=== PATIENT | male | born 1950 | race Caucasian/White ===

== ENCOUNTER 2017-12-14 16:29 | Emergency (ER) | payer MEDICARE, OTHER ==
[~2017-12-14] VITALS: Ht 177.8 cm; Wt 104.3 kg
[2017-12-14 16:43] VITALS: BP 159/102
[2017-12-14] MEDS ORDERED: HYDR-971 PO (17:29)
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
[2017-12-14] MEDS ORDERED: ONDANSETRON ODT 4 MG TAB.RAPDIS PO ONE (17:30)
[2017-12-14] MEDS ORDERED: HYDROcodone/APAP 7.5/325MG 1 TAB TABLET PO ONE (17:30)
== END 2017-12-14 17:47 | disposition home or self-care (01) ==
LOC: ER 16:29
DX: S46.212A Strain of muscle, fascia and tendon of other parts of biceps, left arm, initial encounter (principal); I10 Essential (primary) hypertension; X50.9XXA Other and unspecified overexertion or strenuous movements or postures, initial encounter; Y93.89 Activity, other specified; Y99.8 Other external cause status; Y92.89 Other specified places as the place of occurrence of the external cause
CPT/HCPCS: 29105; 99283; Q0162

== ENCOUNTER 2019-06-16 20:19 | Emergency (ER) | payer OTHER, MEDICARE ==
[~2019-06-16] VITALS: Ht 177.8 cm; Wt 98.4 kg
[~2019-06-16 20:19] MED LIST: HYDR-3165 PO
--- NOTE | 2019-06-16 20:25 | ED.ADGEN ---
Past History Past Medical History: Arthritis, Hypertension, Other Past Surgical History: Lumbar Laminectomy, Other Alcohol Use: None Drug Use: None Adult General Chief Complaint Chief Complaint ".. I was up on a ladder trying to remove a window.. and slipped and fell .. landing on this Rt. hip... " HPI HPI Patient is a 68 year old male who presents with above hx and complaints of hip injury after a fall from stepladder approximately 3-4 steps. Patient can bear weight but complains of pain in right hip. Does have some findings of contusion on right hip. Patient has large midline incision from previous lumbar fixation. Distal neurovascular appears to be intact. Patient can do straight leg lift. Is able bear weight with some pain in right hip. Patient denies other injury. No recent travel. No specific ill contacts. Patient follows with Dr. Foreman Review of Systems Review of Systems Constitutional: Denies fever or chills [] Eyes: Denies change in visual acuity, redness, or eye pain [] HENT: Denies nasal congestion or sore throat [] Respiratory: Denies cough or shortness of breath [] Cardiovascular: No additional information not addressed in HPI [] GI: Denies abdominal pain, nausea, vomiting, bloody stools or diarrhea [] : Denies dysuria or hematuria [] Musculoskeletal: Denies back pain or joint pain []Except. complains of Rt. hip pain. Integument: Denies rash or skin lesions [] Neurologic: Denies headache, focal weakness or sensory changes [] Endocrine: Denies polyuria or polydipsia [] All other systems were reviewed and found to be within normal limits, except as documented in this note. Family History Family History Noncontributory Current Medications Current Medications Current Medications Medications (Trade) Dose Ordered Sig/Onur Start Time Stop Time Status Last Admin Dose Admin Ketorolac Tromethamine (Toradol 15mg Vial) 15 mg 1X ONCE 06/16/19 20:45 06/16/19 20:46 DC 06/16/19 20:54 15 MG Lactated Ringer's 1,000 ml @ 1,000 mls/hr Q1H 06/16/19 20:38 06/16/19 21:37 DC 06/16/19 20:54 1,000 MLS/HR Morphine Sulfate (Morphine 10mg Syringe) 10 mg 1X ONCE 06/16/19 20:45 06/16/19 20:46 DC 06/16/19 20:54 10 MG Orphenadrine Citrate (Norflex) 60 mg 1X ONCE 06/16/19 20:45 06/16/19 20:46 DC 06/16/19 20:54 60 MG Allergies Allergies Allergies Coded Allergies Type Severity Reaction Last Updated Verified No Known Drug Allergies 12/14/17 No Physical Exam Physical Exam Constitutional: Moderately acute distress, non-toxic appearance. [] HENT: Normocephalic, atraumatic, bilateral external ears normal, oropharynx moist, no oral exudates, nose normal. [] Eyes: PERRLA, EOMI, conjunctiva normal, no discharge. [] Neck: Normal range of motion, no tenderness, supple, no stridor. [] Cardiovascular: Bradycardia Heart rate regular rhythm, no murmur [] Lungs & Thorax: Bilateral breath sounds equal apex auscultation [] Abdomen: Bowel sounds normal, soft, no tenderness, no masses, no pulsatile masses. [] Multiple surgery scars Skin: Warm, dry, no erythema, no rash. [] Back: No tenderness, no CVA tenderness. [] Old surgery scars Extremities: No tenderness, no cyanosis, no clubbing, ROM intact, no edema. []Except findings in right hip Neurologic: Alert and oriented X 3, normal motor function, normal sensory function, no focal deficits noted. [] Psychologic: Affect anxious, judgement normal, mood normal. [] Current Patient Data Vital Signs Vital Signs Date Time Temp Pulse Resp B/P (MAP) Pulse Ox O2 Delivery O2 Flow Rate FiO2 06/16/19 20:54 16 98 Room Air 06/16/19 20:36 98.1 70 Lab Results Laboratory Tests Test 06/16/19 20:50 White Blood Count 8.1 x10^3/uL (4.0-11.0) Red Blood Count 5.22 x10^6/uL (4.30-5.70) Hemoglobin 15.4 g/dL (13.0-17.5) Hematocrit 45.6 % (39.0-53.0) Mean Corpuscular Volume 88 fL (79-100) Mean Corpuscular Hemoglobin 30 pg (25-35) Mean Corpuscular Hemoglobin Concent 34 g/dL (31-37) Red Cell Distribution Width 13.7 % (11.5-14.5) Platelet Count 259 x10^3/uL (140-400) Neutrophils (%) (Auto) 61 % (31-73) Lymphocytes (%) (Auto) 28 % (24-48) Monocytes (%) (Auto) 9 % (0-9) Eosinophils (%) (Auto) 2 % (0-3) Basophils (%) (Auto) 0 % (0-3) Neutrophils # (Auto) 4.9 x10^3uL (1.8-7.7) Lymphocytes # (Auto) 2.3 x10^3/uL (1.0-4.8) Monocytes # (Auto) 0.7 x10^3/uL (0.0-1.1) Eosinophils # (Auto) 0.1 x10^3/uL (0.0-0.7) Basophils # (Auto) 0.0 x10^3/uL (0.0-0.2) Prothrombin Time 10.4 SEC (9.4-11.4) Prothrombin Time INR 1.0 (0.9-1.1) Activated Partial Thromboplast Time 23 SEC (23-33) Sodium Level 141 mmol/L (136-145) Potassium Level 4.5 mmol/L (3.5-5.1) Chloride Level 106 mmol/L (98-107) Carbon Dioxide Level 26 mmol/L (21-32) Anion Gap 9 (6-14) Blood Urea Nitrogen 18 mg/dL (8-26) Creatinine 1.0 mg/dL (0.7-1.3) Estimated GFR (Cockcroft-Gault) 74.1 Glucose Level 105 mg/dL (70-99) H Calcium Level 9.0 mg/dL (8.5-10.1) Magnesium Level 2.2 mg/dL (1.8-2.4) Total Bilirubin 0.5 mg/dL (0.2-1.0) Direct Bilirubin 0.1 mg/dL (0.0-0.2) Aspartate Amino Transferase (AST) 24 U/L (15-37) Alanine Aminotransferase (ALT) 39 U/L (16-63) Alkaline Phosphatase 67 U/L (46-116) IL-Quz-G-Type Natriuretic Peptide 74 pg/mL (0-124) Total Protein 7.5 g/dL (6.4-8.2) Albumin 4.1 g/dL (3.4-5.0) Lipase 544 U/L (73-393) H EKG EKG My interpretation EKG shows a sinus rhythm at 60 beats per minute. Right bundle branch block. No findings acute STEMI of contralateral changes.[] Radiology/Procedures Radiology/Procedures [[address] [address] IMAGING REPORT Signed PATIENT: LANA CARTAGENA ACCOUNT: [id number] : 1950 LOCATION: ER AGE: 68 SEX: M EXAM STATUS: REG ER ORD. PHYSICIAN: BRYON BRADY MD REASON: Fall off ladder today PROCEDURE: PORTABLE CHEST 1V EXAM: CHEST 1 VIEW. HISTORY: Fall, trauma. COMPARISON: None. FINDINGS: A frontal view of the chest is obtained. There are no confluent infiltrates. There is no pneumothorax or pleural effusion. The heart is not enlarged. The aorta is tortuous. IMPRESSION: 1. No confluent infiltrates. Electronically signed by: Joe Salinas MD (06/16/2019 10:44 PM) [facility] DICTATED AND SIGNED BY: ASHLEY SALINAS MD DATE: 06/16/192243 CC: LYNETTE FOREMAN DO; BRYON BRADY MD ~ ][address] [address] IMAGING REPORT Signed PATIENT: LANA CARTAGENA ACCOUNT: [id number] : 1950 LOCATION: ER AGE: 68 SEX: M EXAM STATUS: REG ER ORD. PHYSICIAN: BRYON BRADY MD REASON: Fall off ladder today PROCEDURE: LUMBAR SPINE 2-3V EXAM: 1. Lumbar spine 3 views. 2. Pelvis one view. 3. Right hip 2 views. HISTORY: Fall from ladder. COMPARISON: None. FINDINGS: There is a minimal lumbar dextrocurvature. Instrumented posterior fusion changes are noted from L4 through S1 with bilateral pedicle screws fixed by vertical rods. No fractures are identified. Degenerative disc disease is mild from T12 through L2, and moderate from L2 through S1. No pelvic fractures are identified. The joint spaces of both hips are maintained. There is mildly decreased femoral head/neck offset with a moderate osseous bump along the anterior aspect of the right femoral neck. Femoral head/neck offset is mildly decreased superolaterally on the left. IMPRESSION: 1. No fracture. 2. L4-S1 instrumented posterior fusion. 3. Mild to moderate diffuse lumbar degenerative disc disease. 4. Correlate for femoroacetabular impingement anteriorly on the right. Electronically signed by: Joe Salinas MD (06/16/2019 10:43 PM) [facility] DICTATED AND SIGNED BY: ASHLEY SALINAS MD DATE: 06/16/192242 CC: LYNETTE FOREMAN DO; BRYON BRADY MD ~ [address] [place] [address] IMAGING REPORT Signed PATIENT: LANA CARTAGENA ACCOUNT: [id number] : 1950 LOCATION: ER AGE: 68 SEX: M EXAM STATUS: REG ER ORD. PHYSICIAN: BRYON BRADY MD REASON: Fall off ladder today PROCEDURE: PELVIS EXAM: 1. Lumbar spine 3 views. 2. Pelvis one view. 3. Right hip 2 views. HISTORY: Fall from ladder. COMPARISON: None. FINDINGS: There is a minimal lumbar dextrocurvature. Instrumented posterior fusion changes are noted from L4 through S1 with bilateral pedicle screws fixed by vertical rods. No fractures are identified. Degenerative disc disease is mild from T12 through L2, and moderate from L2 through S1. No pelvic fractures are identified. The joint spaces of both hips are maintained. There is mildly decreased femoral head/neck offset with a moderate osseous bump along the anterior aspect of the right femoral neck. Femoral head/neck offset is mildly decreased superolaterally on the left. IMPRESSION: 1. No fracture. 2. L4-S1 instrumented posterior fusion. 3. Mild to moderate diffuse lumbar degenerative disc disease. 4. Correlate for femoroacetabular impingement anteriorly on the right. Electronically signed by: Joe Salinas MD (06/16/2019 10:43 PM) [facility] DICTATED AND SIGNED BY: ASHLEY SALINAS MD DATE: 06/16/19 4508 CC: LYNETTE FOREMAN DO; BRYON BRADY MD ~ Course & Med Decision Making Course & Med Decision Making Pertinent Labs and Imaging studies reviewed. (See chart for details) Patient to apply ice packs as needed. Patient follow-up primary care. Patient return of any concerns. Patient review ED record with primary care. Return turn if any concerns. For marked pain may have Vicoprofen up 4 times a day. [] Final Impression Final Impression 1. Fall 2. Right hip contusion 3. Mild elevation in lipase[] Dragon Disclaimer Dragon Disclaimer This electronic medical record was generated, in whole or in part, using a voice recognition dictation system. Dragon Disclaimer This chart was dictated in whole or in part using Voice Recognition software in a busy, high-work load, and often noisy Emergency Department environment. It may contain unintended and wholly unrecognized errors or omissions. BRYON BRADY MD Jun 16, 2019 20:25
[2019-06-16] MEDS ORDERED: IV RINGERS SOLUTION,LACTATED 1,000 ML IV SCH (20:38)
[2019-06-16] MEDS ORDERED: KETOROLAC 15 MG/ML VIAL. IV ONE (20:45)
[2019-06-16] MEDS ORDERED: ORPHENADRINE CITRATE 60 MG/2 ML VIAL. IV ONE (20:45)
[2019-06-16] MEDS ORDERED: MORPHINE SULFATE 10 MG/ML SYRINGE. SQ ONE (20:45)
[2019-06-16 21:22] LABS: BASO % 0 % (0-3); EOS # 0.1 x10^3/uL (0.0-0.7); EOS % 2 % (0-3); HEMATOCRIT 45.6 % (39.0-53.0); HEMOGLOBIN 15.4 g/dL (13.0-17.5); LYMPH # 2.3 x10^3/uL (1.0-4.8); LYMPH % 28 % (24-48); MEAN CORPUSCULAR HEMOGLOBIN 30 pg (25-35); MEAN CORPUSCULAR HGB CONC 34 g/dL (31-37); MEAN CORPUSCULAR VOLUME 88 fL (79-100); MONO # 0.7 x10^3/uL (0.0-1.1); MONO % 9 % (0-9); NEUT # 4.9 x10^3uL (1.8-7.7); NEUT % 61 % (31-73); PLATELET COUNT 259 x10^3/uL (140-400); RED BLOOD COUNT 5.22 x10^6/uL (4.30-5.70); RED CELL DISTRIBUTION WIDTH 13.7 % (11.5-14.5); WHITE BLOOD COUNT 8.1 x10^3/uL (4.0-11.0)
[2019-06-16 21:48] LABS: ALBUMIN 4.1 g/dL (3.4-5.0); DIRECT BILIRUBIN 0.1 mg/dL (0.0-0.2); GFR 74.1; MAGNESIUM 2.2 mg/dL (1.8-2.4); POTASSIUM 4.5 mmol/L (3.5-5.1); TOTAL BILIRUBIN 0.5 mg/dL (0.2-1.0); TOTAL PROTEIN 7.5 g/dL (6.4-8.2)
[2019-06-16] MEDS ORDERED: HYDR-1179 PO (22:24)
--- NOTE | 2019-06-16 22:46 | RAD ---
EXAM: 1. Lumbar spine 3 views. 2. Pelvis one view. 3. Right hip 2 views. HISTORY: Fall from ladder. COMPARISON: None. FINDINGS: There is a minimal lumbar dextrocurvature. Instrumented posterior fusion changes are noted from L4 through S1 with bilateral pedicle screws fixed by vertical rods. No fractures are identified. Degenerative disc disease is mild from T12 through L2, and moderate from L2 through S1. No pelvic fractures are identified. The joint spaces of both hips are maintained. There is mildly decreased femoral head/neck offset with a moderate osseous bump along the anterior aspect of the right femoral neck. Femoral head/neck offset is mildly decreased superolaterally on the left. IMPRESSION: 1. No fracture. 2. L4-S1 instrumented posterior fusion. 3. Mild to moderate diffuse lumbar degenerative disc disease. 4. Correlate for femoroacetabular impingement anteriorly on the right. Electronically signed by: Joe Salinas MD (06/16/2019 10:43 PM) [facility]
--- NOTE | 2019-06-16 22:47 | RAD ---
EXAM: CHEST 1 VIEW. HISTORY: Fall, trauma. COMPARISON: None. FINDINGS: A frontal view of the chest is obtained. There are no confluent infiltrates. There is no pneumothorax or pleural effusion. The heart is not enlarged. The aorta is tortuous. IMPRESSION: 1. No confluent infiltrates. Electronically signed by: Joe Salinas MD (06/16/2019 10:44 PM) [facility]
[2019-06-16 23:30] VITALS: BP 119/60
--- NOTE | 2019-06-18 01:52 | EKG ---
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
== END 2019-06-16 23:30 | disposition home or self-care (01) ==
LOC: ER 20:19
DX: S70.01XA Contusion of right hip, initial encounter (principal); R74.8 Abnormal levels of other serum enzymes; M51.36 Other intervertebral disc degeneration, lumbar region; M19.90 Unspecified osteoarthritis, unspecified site; I10 Essential (primary) hypertension; W11.XXXA Fall on and from ladder, initial encounter; Y93.89 Activity, other specified; Y92.89 Other specified places as the place of occurrence of the external cause; Y99.8 Other external cause status
CPT/HCPCS: 36415; 71045; 72100; 72170; 73502; 80048; 80076; 83690; 83735; 83880; 84443; 85025; 85610; 85730; 93005; 96372; 96374; 96375; 99285; J1885; J2270; J2360; J7120

== ENCOUNTER → 2021-01-04 | Outpatient (CLI) | payer OTHER ==
[~2021-01-04] MED LIST changes: +HYDR-1179 PO
--- NOTE | 2021-01-04 16:24 | RAD ---
XR LUMBAR SPINE 2-3V History: Reason: LOW BACK PAIN / Spl. Instructions: / History: Comparison: 06/16/2019 Technique: AP lateral and spot views of the lumbar spine Findings: There is a redemonstrated L4-S1 posterior spinal fixation. No evidence of screw loosening or componen t fracture. 5 nonrib-bearing lumbar vertebral bodies are in normal alignment. No fracture or dislocation. Promine nt multilevel marginal osteophyte formation. Mild disc space narrowing L1-L2. Moderate disc space morgan rowing L2-L3, L3-L4. No significant interval change from comparison. Impression: 1. L4-S1 posterior spinal fixation without evidence of complication. 2. Moderate adjacent segment degenerative disc disease. Electronically signed by: Orestes Aviles MD (01/04/2021 4:22 PM) [facility]
== END ==
LOC: DXRAD 10:08
PROVIDERS: ATTEND Family Medicine
DX: M51.36 Other intervertebral disc degeneration, lumbar region (principal); M48.061 Spinal stenosis, lumbar region without neurogenic claudication; M25.78 Osteophyte, vertebrae
CPT/HCPCS: 72100

== ENCOUNTER → 2021-06-05 | Outpatient (CLI) | payer MEDICARE, OTHER ==
--- NOTE | 2021-06-05 10:32 | RAD ---
CT ABDOMEN+PELVIS WO History: Reason: HEMATURIA - STONE STUDY / Spl. Instructions: / History: Technique: Noncontrast examination of the abdomen and pelvis. Coronal and sagittal reconstructions we re performed. Exposure: One or more of the following individualized dose reduction techniques were utilized for thi s examination: 1. Automated exposure control 2. Adjustment of the mA and/or kV according to patient size 3. Use of iterative reconstruction technique. Comparison: March 16, 2006 Findings: Lower chest: No consolidation or pleural effusion. Abdomen and pelvis: The liver, adrenal glands, pancreas and gallbladder are unremarkable. No biliary ductal dilatation. The spleen is enlarged measures 14 cm craniocaudal. No hydronephrosis. Punctate nonobstructing left inferior renal calculus. Bilateral perinephric strand ing extending along the retroperitoneum and course of the ureters into the pelvis. Colonic diverticulosis. Normal appendix. No evidence of bowel obstruction. No pathologic lymphadenopa thy. No ascites. Mild atheromatous plaque within the nonaneurysmal abdominal aorta. The prostate is enlarged measures 5.5 x 4.6 cm. Prostatic calcifications noted. Hypodensity within th e right posterior prostate measures 0.8 x 0.5 cm. Bones: Posterior stabilization L4-S1. Multilevel lumbar spondylosis. Impression: 1. Bilateral perinephric edema extending inferiorly into the pelvis, may represent infection. No obs tructing urolithiasis. 2. Punctate nonobstructing left intrarenal calculus. 3. Prostamegaly with small hypodensity. Recommend correlation with PSA. 4. Mild urinary bladder wall trabeculation thickening, may relate to chronic outlet obstruction. Electronically signed by: Shady Decker DO (06/05/2021 10:29 AM) [id number]
== END ==
LOC: CT 09:50
PROVIDERS: ATTEND Family Medicine
DX: K57.30 Diverticulosis of large intestine without perforation or abscess without bleeding (principal); N20.0 Calculus of kidney; R31.9 Hematuria, unspecified; R16.1 Splenomegaly, not elsewhere classified; M47.816 Spondylosis without myelopathy or radiculopathy, lumbar region; I70.0 Atherosclerosis of aorta
CPT/HCPCS: 74176